=== PATIENT | female | born 1965 | race Native Hawaiian/Other Pacific Islander ===

== ENCOUNTER 2018-02-28 09:26 | Day surgery (SDC) | payer BC ==
[2018-02-22 10:11] VITALS: BMI 31.6
[2018-02-28] MEDS ORDERED: Sodium Chloride 0.9% 0 ML IV ONE (11:19)
[2018-02-28] MEDS ORDERED: Lidocaine/Epinephrine 1% 1:100000 10 ML IJ ONE (11:19)
[2018-02-28] MEDS ORDERED: HEPARIN-NS 5,000 UNITS/500 ML 5,000 UNIT/500 ML BAG IV ONE (11:20)
--- NOTE | 2018-02-28 11:27 | CP.SDSHP ---
Same Day Surgery H & P - History Proposed Procedure: Right port placement Pre-Op Diagnosis: Breast cancer - Allergies Allergies: Allergies No Known Allergies Allergy (Verified 02/22/18 10:09) - Physical Exam Vital Signs: Vital Signs 02/28/18 09:39 Temperature 97.7 F Pulse Rate 72 Respiratory 20 Rate Blood Pressure 142/89 O2 Sat by Pulse 98 Oximetry Mental Status: Alert & Oriented x3 Neuro: WNL Heart: WNL Lungs: WNL GI: WNL - Impression Impression: Pt with breast cancer referred for port placement. Plan right IJV port placement. Informed consent obtained. Pt. Evaluated Today:Candidate for Anesthesia & Procedure: Yes (ASA 3 Malampati 3) Short Stay Discharge - Short Stay Discharge Admitting Diagnosis/Reason for Visit: BREAST CANCER Disposition: HOME/ ROUTINE
[2018-02-28] MEDS ORDERED: Propofol 10 mg/ml Inj (20 ML) ONE (11:28)
[2018-02-28] MEDS ORDERED: Midazolam 2 MG/2 ML VIAL ONE (11:28)
[2018-02-28] MEDS ORDERED: ceFAZolin 1 gm in NS 1 GM/100 ML BAG IVPB ONE (11:41)
--- NOTE | 2018-02-28 12:14 | PCM.SURG1 ---
Surgeon's Initial Post Op Note - Surgeon's Notes Surgeon: Godfrey Judge MD Centerless Grinding Machine Adjuster: NONE Type of Anesthesia: IV Sedation Pre-Operative Diagnosis: Breast cancer Operative Findings: US showed patent right IJV Post-Operative Diagnosis: Breast cancer Operation Performed: Port placement right IJV Specimen/Specimens Removed: NONE Estimated Blood Loss: EBL {In ML}: 4 Blood Products Given: N/A Drains Used: No Drains Post-Op Condition: Good Date of Surgery/Procedure: 02/28/18 Time of Surgery/Procedure: 12:10
[2018-02-28] MEDS ORDERED: Lactated Ringer's 1,000 ML IV SCH (12:30)
[2018-02-28 13:16] VITALS: O2SAT 100
[2018-02-28 13:45] VITALS: BP 126/82; PULSE 88; RESP 18; TEMP 97
--- NOTE | 2018-03-01 14:29 | RAD ---
PROCEDURE: Date of procedure: 02/28/2018 Procedure: 1. Placement of a right IJ port catheter with ultrasound and fluoroscopic guidance, CPT 47627 2. Catheter tip confirmation with spot radiograph in the superior vena cava. Medications: The patient was sedated anesthesiologist along with monitoring, Ancef 1 gm, Lidocaine 1% w Epinephrine Fluoroscopic time: 7.4 Seconds Radiation: 0.49 MGy Blood loss: 4 cc HISTORY: Breast cancer requiring port for chemotherapy TECHNIQUE: Following informed consent the procedure time-out, patient was placed supine on the interventional table and the right neck and chest were prepped and draped in the usual sterile fashion. Ultrasound showed a compressible right internal jugular vein. After the patient was sedated by the anesthesiologist, the skin anesthetized with 1% lidocaine with epinephrine. Under direct ultrasound guidance, the right internal jugular vein was accessed with micropuncture technique. A guidewire was then advanced under fluoroscopic guidance into the superior vena cava. An image documenting ultrasound guidance for vascular access was permanently saved. The subcutaneous tissue of patient right chest was infiltrated with 1 percent lidocaine with epinephrine. A dermatotomy was made with a 15. Scalpel. The port pocket was then created with blunt dissection using a Trinity clamp. The port pocket was flushed. A port catheter was then tunneled under the skin and out the venotomy site. The port catheter was flushed, advanced through a peel-away sheath, adjusted for length, and attached to the port. The port was placed in the port pocket and was secured with 2-0 SurgiPro sutures. The port was flushed and locked with heparin. The port pocket was then closed with absorbable 4-0 Polysorb sutures. The port pocket and the venotomy site were reprepped with ChloraPrep. Steri-Strips were then applied to the port incision also venotomy site. A sterile dressing was then applied. Final spot radiograph showed the right IJ port catheter with tip of the port catheter in the superior vena cava. A port is functional and ready for use. IMPRESSION: Placement of right IJ port catheter. The tip of the port is in the superior vena cava.
== END 2018-02-28 14:02 | disposition home or self-care (01) ==
LOC: C.SDS 09:26
PROVIDERS: ATTEND Radiology Vascular & Interventional Radiology
DX: C50.919 Malignant neoplasm of unspecified site of unspecified female breast (principal); G70.00 Myasthenia gravis without (acute) exacerbation
CPT/HCPCS: 36561; 77001; J0690; J2001; J2250; J2405; J2704; J3010